=== PATIENT | male | born 1995 | race African-American/Black ===

== ENCOUNTER 2017-11-21 21:27 | Emergency (ER) | payer BC ==
[~2017-11-21] VITALS: Ht 165.1 cm; Wt 72.7 kg
[2017-11-21 21:35] VITALS: BP 128/80; PULSE 81; TEMP 98
== END 2017-11-21 23:35 | disposition home or self-care (01) ==
LOC: COL.ER 21:27
DX: S61.214A Laceration without foreign body of right ring finger without damage to nail, initial encounter (principal); W25.XXXA Contact with sharp glass, initial encounter; Y92.009 Unspecified place in unspecified non-institutional (private) residence as the place of occurrence of the external cause

== ENCOUNTER 2017-11-30 11:02 | Emergency (ER) | payer BC ==
[2017-11-30 11:19] VITALS: BP 113/77; PULSE 69; TEMP 98.2
== END 2017-11-30 11:23 | disposition home or self-care (01) ==
LOC: COL.ER 11:02
DX: S61.214D Laceration without foreign body of right ring finger without damage to nail, subsequent encounter (principal); X58.XXXD Exposure to other specified factors, subsequent encounter